=== PATIENT | male | born 1970 | race African-American/Black ===

== ENCOUNTER 2023-04-09 21:40 | Emergency (ER) | payer OTHER ==
[~2023-04-09] VITALS: Ht 162.6 cm; Wt 68.0 kg
[2023-04-09 21:40] VITALS: TEMP 97.9
[~2023-04-09 21:40] MED LIST: OMEP20CA PO; ZANTAC 75 PO
[2023-04-09 23:40] VITALS: BP 114/76
== END 2023-04-09 23:40 ==
LOC: ED 21:40
DX: M54.9 Dorsalgia, unspecified (principal); F10.129 Alcohol abuse with intoxication, unspecified; V89.2XXA Person injured in unspecified motor-vehicle accident, traffic, initial encounter
CPT/HCPCS: 96372; 96374; 99284; J1885; J2360